=== PATIENT | female | born 1980 | race Caucasian/White ===

== ENCOUNTER 2018-07-13 07:35 | Day surgery (SDC) | payer SELFPAY ==
[2018-07-12 14:33] VITALS: BMI 23.1
[2018-07-13] MEDS ORDERED: ceFAZolin SODIUM 1 GM VIAL ONE ×2 (07:56→15:45)
[2018-07-13] MEDS ORDERED: LIDOCAINE 1%-EPI 1:100,000 30 ML MDV IJ ONE (08:42)
[2018-07-13] MEDS ORDERED: LIDOCAINE HCL/PF 2% SDV 5ML VIAL ONE ×2 (08:53→12:11)
[2018-07-13] MEDS ORDERED: fentaNYL CITRATE 250 MCG/5 ML VIAL ONE (08:53)
[2018-07-13] MEDS ORDERED: PROPOFOL 20 ML ONE ×2 (08:53→08:54)
[2018-07-13] MEDS ORDERED: ROCURONIUM BROMIDE 50 MG/5 ML VIAL ONE (08:54)
[2018-07-13] MEDS ORDERED: MIDAZOLAM HCL 2 MG/2 ML SINGLE DOSE VIAL ONE (08:54)
[2018-07-13] MEDS ORDERED: OXYMETAZOLINE 0.05% NASAL SOLUTION 15 ML BOTTLE NS ONE ×2 (09:15→10:06)
[2018-07-13] MEDS ORDERED: ceFAZolin SODIUM 1 GM VIAL IVPB ONE ×2 (09:30→15:45)
[2018-07-13] MEDS ORDERED: LIDOCAINE 1%/EPI 1:100000 (50 ML MULTI DOSE VIAL) NR ONE ×2 (10:06)
[2018-07-13] MEDS ORDERED: TRANEXAMIC ACID 1000 MG/10 ML VIAL ONE (10:46)
[2018-07-13] MEDS ORDERED: DEXAMETHASONE SOD PHOSPHATE 4 MG/1 ML VIAL ONE (10:51)
[2018-07-13] MEDS ORDERED: BACITRACIN 15 GM TUBE TOPICAL OINTMENT ONE (15:55)
[2018-07-13] MEDS ORDERED: ONDANSETRON 4 MG/2 ML VIAL IVPUSH PRN (16:39)
[2018-07-13] MEDS ORDERED: ACETAMINOPHEN 1000 MG/100 ML VIAL (NON FORMULARY) IVPB PRN (16:40)
[2018-07-13] MEDS ORDERED: LACTATED RINGERS SOLUTION 1,000 ML IV SCH ×2 (16:45→17:00)
[2018-07-13] MEDS ORDERED: oxyCODONE HCL 5 MG TABLET PO PRN ×2 (16:52)
[2018-07-13] MEDS ORDERED: ONDANSETRON 4 MG/2 ML VIAL IVPB PRN (16:52)
--- NOTE | 2018-07-13 16:55 | OP ---
Operative Note - Note: Operative Date: 07/13/18 Pre-Operative Diagnosis: nasal deformity Operation: septorhinoplasty wth alloplastic costal cartilage graft to nose Findings: right upper lateral cartilage dehissence, total transection with segmental gap in the left lower lateral cartilage Post-Operative Diagnosis: Same as Pre-op Surgeon: Bong Barrera Anesthesia: General
[2018-07-13] MEDS ORDERED: ACETAMINOPHEN INJECTION 100 ML IVPB ONE (17:10)
[2018-07-13] MEDS ORDERED: oxyCODONE HCL 5 MG TABLET ONE (18:07)
[2018-07-13] MEDS ORDERED: ONDANSETRON 4 MG/2 ML VIAL ONE (18:07)
[2018-07-13] MEDS ORDERED: ONDANSETRON 4 MG/2 ML VIAL IVPB ONE (18:10)
[2018-07-13] MEDS ORDERED: oxyCODONE HCL 5 MG TABLET PO ONE (18:10)
--- NOTE | 2018-07-13 19:00 | OP ---
DATE OF OPERATION: 07/13/2018 TITLE OF PROCEDURE: Septorhinoplasty with alloplastic implantation of costal cartilage to nose. ATTENDING SURGEON: Bong Barrera MD NATIONAL OPELINT ANALYST: None. ANESTHESIA: General endotracheal anesthesia. 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 DESCRIPTION OF PROCEDURE: The patient is seen in the holding area and she is thoroughly counseled on all risks, benefits and alternatives to the procedure. The patient is counseled on the need for cartilage grafting to the nose as discussed with the patient at length, the pros and cons of using her autologous costal cartilage versus a tissue allograft and she has firmly chosen to use the irradiated cartilage tissue allograft. The patient is marked for an open rhinoplasty. The full extent of the risks, benefits and alternatives are discussed with patient. I have also discussed with the patient the likelihood of an imperfect outcome given the unknown from the previous surgical attempts on her nose. She thoroughly understands the risks, benefits and alternatives and limitation of this operation. SABINA hose and sequential compression stockings were given in the holding area. She is given a gram of Ancef pre operatively. She is brought to the operating room, placed in supine position. Position is carefully checked by surgical and anesthesia teams, all appropriate positioning aids were used. After anesthesia was given, a Arevalo catheter is placed which is removed at the end of the procedure. A pillow is placed below the knees. A crate is placed under each elbow. The nose is then prepped with an initial injection of 6 mL of 1% lidocaine and 1:100,000 epinephrine into the nasal septum and an additional 6 mL into the subcutaneous tissues over the nose. Throat pack is placed, which was also removed at the end of the procedure. The nose is also then packed with Afrin-soaked 1/2-inch cottonoids. The face is prepped and draped in standard sterile fashion. The eyes were protected with Lacri-Lube and tape. After scrubbing a timeout is called, the patient, procedure, side and sites verified. At this point the Afrin-soaked pledgets are removed. The transcolumellar incision is made along the existing scar. The medial crura are dissected and the incision was connected to bilateral infracartilaginous incisions in each nostril. The right lower lateral cartilage is dissected without difficulty. The left lower lateral cartilage is found to be divided in 2 segments that are non-contiguous. There is an absence of the genu of the lower lateral cartilage. There is severe over-resection of the bilateral lower cartilages but a segment defect is found going on the left side. Dissection is then continued onto the dorsum of the nose where at a level of the bony pyramid a subperiosteal plane is then entered and median dissection is performed with a Deandre elevator. 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 Once this was completed, attention was then directed toward dissecting the septum. As the patient had previous septoplasty surgery and a large segment of the septum is absent, the remaining L strut was not sufficient to graft for the necessary steps in the operation. Additionally, the portion of the septum that is available is very difficult to dissect given the previous scarring and severe residual deviation. The septum is dissected on both its dorsal and caudal strut to address the excessive length of the patient's nose. A caudal septal resection of 2 mm is performed. Minimal contouring of the dorsal septum is then performed. Submucoperichondrial tunnels are developed on either side of the septum and reveal a C-shaped curvature of the dorsal septum. The periosteal tunnels are then injected with 1% lidocaine with 1:100,000 epinephrine in preparation for both medial and lateral osteotomies. While this local anesthetic was working, the alloplastic cartilage graft is trimmed for the series of grafts that will be required for reconstruction of this nose. Bilateral alar hugo grafts are carved. A columellar strut is carved and bilateral power septal hydraulic press tender grafts are carved. At the completion of this the pyriform aperture incisions are made and lateral low-to-low osteotomies are planned and the periosteum on the superficial surface is elevated. Medial osteotomy is performed with a central guarded 4-mm osteotome on either side of the septum and a single guarded 4-mm straight osteotome is used for bilateral lateral low-to-low osteotomies. Once these were completed and able to be mobilized medially bilaterally, a good dorsal contour is appreciated. Attention is then directed toward the straightening procedure of the septum. Concave right-sided surface of the septum is scored in multiple locations. Right-sided hydraulic press tender graft is mixed with a series of interrupted 5-0 horizontal mattress suture with a locking element to straighten the septum. A left sided hydraulic press tender graft is then placed and with the skin redraped to assess that, this does not look good, nor is it necessary to achieve the desired dorsal spreading lines. On the left side a modified hydraulic press tender flap is used using the upper lateral cartilages which serves to achieve good dorsal effect and contour. The distal aspect of the upper lateral cartilages is then sutured to the septum and the hydraulic press tender graft distally at the level of the caudal septum with 5-0 Vicryl suture in order to secure dorsal spreading lines and to try to achiever a narrower middle vault the patient was requesting. Once this was completed, attention was directed toward the tip. The patient's tip is severely under-projected, poorly supported, inferiorly displaced and deformed on account of previous over-resection of the lower lateral cartilages. There was no way to recreate normal anatomy with the existing tissue, so the decision was made to use cartilage grafts for temporary construction. This was begun first with a columellar strut graft partly within the columella and to the anterior nasal spine of the maxilla is then created in order to gain access to this base. As was discussed with the patient preoperatively, an upper lip digital labial incision was made and dissected to the anterior nasal spine, where a 4-0 Prolene suture is able to be used to secure the base position at the midline of this columellar strut. The medial footplates and crura are then sutured to the strut and to each other in a mattress fashion with a series of interrupted 5-0 nylon suture. The hugo grafts which were shaved aspects of the topical cartilage are then secured onto the residual of the lower lateral cartilages in a symmetric fashion. These are done with mattressed 5-0 nylon suture. To compensate for the lost support on the left lower lateral cartilage suturing between the hugo graft and the soft tissue and recreate the appearance of a dome of the lower lateral cartilages. This was done also with 5-0 nylon suture. Grafts are secured to the distal projecting portion of the columellar strut which is itself secured to the anterior septal extension component of the hydraulic press tender graft. This is done with 5-0 PDS on the tip and 4-0 Prolene between the columellar strut and the anterior septal extension component of the hydraulic press tender graft. Skin is then redraped and symmetric appearance is noted to be achieved as best as possible. The grafts are trimmed to best shape as best as possible. Good tip support, good tip vascularity are appreciated. The transcolumellar incision is then closed with a series of interrupted 6-0 nylon suture. The infracartilaginous, endonasal incisions are closed with a series of interrupted 4-0 chromic gut suture with care taken to not leave any exposed suture or graft material. Bilateral internal nasal silicon septal splints are then placed on either side of the septum and secured with a transseptal mattressed 4-0 Prolene suture. An external Matthias splint is then applied. A mustache dressing was applied. Again, the tip skin is pink and viable. Contour of the nose is excellent by my own assessment as well as the rest of the operating team. The patient is awoken from anesthesia having tolerated the procedure well. Throat pack is removed. Eyes are rinsed with balanced salt solution. Arevalo catheter was removed and she was transferred to recovery without complications. Delilah [id number]
[2018-07-13 21:16] VITALS: BP 109/73; PULSE 82; TEMP 98
== END 2018-07-13 19:15 | disposition home or self-care (01) ==
LOC: JASU-SURG 07:35
PROVIDERS: ATTEND Plastic Surgery
PROC: 09U Ear, Nose, Sinus, Supplement (ICD-10-PCS; 2018-07-13)
PROC: 090 Ear, Nose, Sinus, Alteration (ICD-10-PCS; principal; 2018-07-13 09:00)
DX: J34.2 Deviated nasal septum (principal); M95.0 Acquired deformity of nose
CPT/HCPCS: 84703; 94760; J0131